=== PATIENT | male | born 1980 | race Caucasian/White ===

== ENCOUNTER 2020-12-27 17:34 | Emergency (ER) | payer BC ==
[~2020-12-27] VITALS: Ht 188 cm; Wt 108.9 kg
[2020-12-27] MEDS ORDERED: FORTAMET500 MG PO (17:43)
[2020-12-27] MEDS ORDERED: ERYTHROMYCIN OPH1 GM OP (19:55)
== END 2020-12-27 20:14 | disposition home or self-care (01) ==
LOC: ER 17:34
DX: H10.11 Acute atopic conjunctivitis, right eye (principal); R51.9 Headache, unspecified